=== PATIENT | male | born 1940 | race Caucasian/White ===

== ENCOUNTER 2020-07-12 13:38 | Outpatient (CLI) | payer MEDICARE, SELFPAY ==
--- NOTE | ~2020-07-12 | XR_ITS ---
EXAMINATION: XR abdomen/kub 1V DATE: 07/12/2020 14:11 INDICATION: Left lower quadrant abdominal pain. Constipation. TECHNIQUE: A supine view of the abdomen on 2 radiographs was obtained. COMPARISON: CT abdomen and pelvis 03/23/2009 FINDINGS: There are no dilated loops of bowel. There is a small volume of stool in the colon. Surgica l clips in the right upper quadrant are likely from cholecystectomy. There is a 4 mm stone in right k idney. There are least 3 stones in left kidney measuring up to 5 mm. There are phleboliths in the pel vis. IMPRESSION: 1. Normal bowel gas pattern. 2. Bilateral kidney stones. Reviewed, dictated and finalized at location B.
== END 2020-07-12 13:39 | disposition home or self-care (01) ==
LOC: ANHIMG 13:44
PROVIDERS: PCP Internal Medicine; Visit Provider Internal Medicine
DX: K59.00 Constipation, unspecified (principal); N20.0 Calculus of kidney
CPT/HCPCS: 74018

== ENCOUNTER 2020-08-29 06:43 | Emergency (ER) | payer MEDICARE, SELFPAY ==
--- NOTE | ~2020-08-29 | CT_ITS ---
EXAMINATION: CT BRAIN W/O DATE: 08/29/2020 08:06 INDICATION: Headache. TECHNIQUE: Computed tomography (CT) of the head and sinuses was performed without intravenous contras t. The dose-length product was 756.67 mGy-cm. The mA was adjusted according to patient size. Iterativ e reconstruction technique was employed. COMPARISON: 09/19/2012 FINDINGS: Mild generalized atrophy. There are scattered mild periventricular and subcortical white ma tter changes, most likely related to small vessel ischemic disease (microangiopathy). No ventriculomegaly or midline shift. Midline sagittal images demonstrate a normal corpus callosum, c raniovertebral junction and sella turcica. Basilar cisterns are patent. There is mild mucosal thickening of the maxillary sinuses. Minimal mucosal thickening left sphenoid s inus. Ostiomeatal units are patent. 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 IMPRESSION: 1. No acute intracranial abnormality. 2: Mild sinus disease. 3: Chronic age-related findings. Reviewed, dictated and finalized at location A.
[2020-08-29 06:51] VITALS: BP 135/75; PULSE 83; RESP 18; TEMP 36.7; O2SAT 98
[2020-08-29 07:58] LABS: Basophils Absolute Auto 0.1 K/mm3 (0.0-0.1); Basophils Percent Auto 0.5 % (0.2-1.2); Eosinophils Absolute Auto 0.3 K/mm3 (0-0.3); Eosinophils Percent Auto 1.5 % (0-4.4); Hematocrit 40.5 % (42.0-52.0); Hemoglobin 13.1 g/dL (14.0-18.0); Immature Granulocyte Absolute 0.21 K/mm3 (0.00-0.031); Immature Granulocyte Percent A 1.1 % (0-0.5); Lymphocytes Absolute Auto 2.69 K/mm3 (0.9-3.2); Lymphocytes Percent Auto 14.1 % (18.3-44.2); Mean Corpuscular HGB Conc 32.3 g/dl (32-36); Mean Corpuscular Hemoglobin 29.2 pg (26-34); Mean Corpuscular Volume 90.2 fl (80-100); Mean Platelet Volume 10.6 fl (7.4-10.4); Monocytes Absolute Auto 1.2 K/mm3 (0.1-0.6); Monocytes Percent Auto 6.3 % (2.6-8.5); Neutrophils Absolute Auto 14.6 K/mm3 (1.3-6.7); Neutrophils Percent Auto 76.5 % (45.5-73.1); Platelet Count Result 295 k/mm3 (150-375); Red Blood Count 4.49 M/mm3 (4.6-6.20); Red Cell Distribution Width 14.7 % (11.5-14.5); White Blood Count 19.1 K/mm3 (4.5-10.0)
[2020-08-29 08:28] LABS: Anion Gap 16 mmol/L (8-16); Blood Urea Nitrogen 26 mg/dL (9-20); CRP 14.9 mg/dL (<1.0); Calcium 9.5 mg/dL (8.4-10.2); Carbon Dioxide 19 mmol/L (22-30); Chloride 105 mmol/L (98-107); Estimated Glomerular Filt Rate 45; Glucose 203 mg/dL (75-110); Potassium 4.1 mmol/L (3.4-5.0); Sodium 140 mmol/L (137-145)
[2020-08-29 09:11] VITALS: BP 132/77; PULSE 75; RESP 18; O2SAT 98
--- NOTE | 2020-08-29 10:37 | ED.HA ---
HPI - Headache General Chief Complaint: Headache Stated Complaint: Headache Time Seen by Provider: 08/29/20 07:11 Source: patient Mode of arrival: ambulatory Limitations: no limitations History of Present Illness HPI Narrative: 80-year-old with a history of hypertension, diabetes, recurrent sinus infections here with a complains of having frontal headaches for last few days however last night he said the pain was intense. He is presently on cefuroxime for past 4 days given by his primary doctor. He denies any fever or chills. No history of chest pain or shortness of breath or cough. MD elicited complaint: headache Pertinent past history: hypertension Onset (ago): day(s) (2) Onset description: gradually Location: frontal Quality & Timing: aching Exacerbating factors: none Relieving factors: nothing Associated symptoms: none Treatments prior to arrival: none Related Data Home Medications Medication Instructions Recorded Confirmed testosterone cypionate 200 mg/mL 200 mg IM ONCE 03/03/20 intramuscular oil Allergies Allergy/AdvReac Type Severity Reaction Status Date / Time No Known Allergies Allergy Verified 03/29/20 14:32 NKFA Allergy Unknown Abdominal Uncoded 03/29/20 14:32 Pain Review of Systems Review of Systems: All systems reviewed & are unremarkable except as noted in HPI and below Constitutional: Constitutional: Reports as per HPI Eyes: Eyes: Reports as per HPI Cardiovascular: Cardiovascular: Reports no additional cardiovascular complaints Respiratory: Respiratory: Reports no additional respiratory complaints Integumentary/Breasts: Skin/Breast: Reports system reviewed and no additional complaints, except as docu Neurologic: Reports system reviewed and no additional complaints, except as documented Psychiatric: Psychiatric: Reports no additional psychiatric complaints PMFSH Past Medical History Medical History CAD (coronary artery disease) Cholecystostomy care Surgical History Surgical History H/O cataract extraction Family History Family History Father Family history of emphysema Mother Family history of heart disease in male family member before age 55 Social History Social History Smoking end date: 11/19/84 Alcohol intake: never Exam Narrative: Exam Narrative: GENERAL: Well-appearing, well-nourished, and in no acute distress. HEAD: Normocephalic, atraumatic. EYES: PERRLA and EOMI. ENT: Nares clear, no rhinorrhea or epistaxis. Mucous membranes moist. NECK: Supple. CHEST: Clear to auscultation. No respiratory distress. HEART: Regular rate and rhythm. No murmur heard. Normal peripheral pulses. ABDOMEN: Soft, nontender, nondistended, normal active bowel sounds. EXTREMITIES: Normal range of motion. No edema. SKIN: Warm, dry, no rash. NEURO: No focal deficits. Alert and oriented x3. PSYCH: Normal mood and affect. Course Course Emergency Course: Inform patient about his lab work, CT findings. As patient is been on cefuroxime for past 4 days and still having symptoms along with elevated white count advised him to stop the antibiotic and will start him on Augmentin 875 twice daily. Also recommended him to continue his home medication. Vital Signs Vital signs: Vital Signs Temperature 36.7 C 08/29/20 06:51 Pulse Rate 83 08/29/20 06:51 Respiratory Rate 18 08/29/20 06:51 Blood Pressure 135/75 08/29/20 06:51 Pulse Oximetry 98 08/29/20 06:51 Temperature 36.7 C 08/29/20 06:51 Pulse Rate 75 08/29/20 09:11 Respiratory Rate 18 08/29/20 09:11 Blood Pressure 132/77 08/29/20 09:11 Pulse Oximetry 98 08/29/20 09:11 MDM - Headache Differential Diagnosis Differential diagnosis: Likely migraine, headache and sinusitis Medical Re
[2020-08-29 10:52] VITALS: BP 136/79; PULSE 77; RESP 18; O2SAT 99
== END 2020-08-29 10:53 | disposition home or self-care (01) ==
PROVIDERS: Emergency Provider Family Medicine; PCP Internal Medicine
DX: J01.01 Acute recurrent maxillary sinusitis (principal); I10 Essential (primary) hypertension; E11.9 Type 2 diabetes mellitus without complications; I25.10 Atherosclerotic heart disease of native coronary artery without angina pectoris; Z98.49 Cataract extraction status, unspecified eye
CPT/HCPCS: 36415; 70450; 70486; 80048; 85025; 86140; 96365; 99284; J0696

== ENCOUNTER 2020-09-01 15:13 | Emergency (ER) | payer MEDICARE, SELFPAY ==
--- NOTE | ~2020-09-01 | CT_ITS ---
EXAMINATION: CTA brain carotid EXAM DATE: 09/01/2020 19:18 INDICATION: Headache Sunday. TECHNIQUE: Noncontrast head CT. Spiral CTA of the carotid arteries was performed with intravenous i njection 100 cc of Omnipaque 350. Axial, coronal, sagittal reformatted images reviewed. Additional r eformatted images created on dedicated 3-D workstation. NASCET comparable standard used to assess th e degree of arterial stenosis. Spiral CT angiogram cerebral arteries performed with the same intrave nous injection of contrast. Source images of the brain CTA transferred to dedicated workstation for 3 -D rotational image creation. Coronal, sagittal maximum intensity pixel images also reviewed. The d ose-length product (DLP) for this examination was 1935.61 mGy-cm. The exposure was tailored accordi ng to patient size, and iterative reconstruction (ASIR) was used as additional dose reduction techniq ue. Comparison is made to prior examination from 08/29/2020. FINDINGS: There is mild to moderate right carotid bulb plaque with 0% stenosis. There is mild left ca rotid bulb plaque with 0% stenosis, plaque is accommodated by the dilation of the carotid bulb. The l eft vertebral artery is dominant. There is left-sided posterior communicating artery dominant posteri or cerebral artery. There is mild bilateral carotid siphon arterial sclerosis without stenosis. Ther e is no carotid or vertebral basilar arterial dissection or fibromuscular dysplasia. There are no cer ebral artery aneurysms. There is symmetric cerebral artery arborization. The sagittal, transverse and sigmoid sinuses enhance normally, no venous sinus thrombosis. Internal cerebral veins also enhance n ormally. There is no acute intraparenchymal hemorrhage. No evidence of intraparenchymal brain mass lesion. N o evidence of acute infarction. There is mild periventricular and subcortical hypodensity, nonspecifi c but probably related to small vessel ischemic disease. There is mild prominence of the sulci and ventricles related to cerebral atrophy. There is intracranial carotid arteriosclerosis. There is no mass effect or midline shift. There is no obstructive hydrocephalus suspected. There are no extra -axial collections. There are no calvarial acute fractures. Bilateral cataract surgery. Large cervic al endplate osteophytes with advanced cervical spondylosis. Sternotomy wires. IMPRESSION: 1. No acute cervical or intracranial findings. 2. Mild atrophy and microangiopathy. 3. Carotid plaque without stenosis Reviewed, dictated and finalized at location A.
[2020-09-01 15:47] VITALS: BP 129/69; PULSE 94; RESP 18; TEMP 37.1; O2SAT 98
[2020-09-01 18:05] VITALS: BP 127/70; PULSE 95; RESP 15; O2SAT 98
--- NOTE | 2020-09-01 18:18 | ECG_ITS ---
Measurements Intervals [place] Rate: 78 P: 14 ND: 170 QRS: 31 QRSD: 86 T: 35 QT: 334 QTc: 380 Interpretive Statements SINUS RHYTHM NONSPECIFIC T-WAVE ABNORMALITY- ANT/INF LEADS BORDERLINE ECG Electronically Signed On 09-02-2020 6:58:02 CDT by Manas Michael D.O.
[2020-09-01 18:42] LABS: Basophils Absolute Auto 0.1 K/mm3 (0.0-0.1); Basophils Percent Auto 0.5 % (0.2-1.2); Eosinophils Absolute Auto 0.2 K/mm3 (0-0.3); Eosinophils Percent Auto 0.9 % (0-4.4); Hematocrit 37.1 % (42.0-52.0); Hemoglobin 12.2 g/dL (14.0-18.0); Immature Granulocyte Absolute 0.12 K/mm3 (0.00-0.031); Immature Granulocyte Percent A 0.7 % (0-0.5); Lymphocytes Absolute Auto 1.69 K/mm3 (0.9-3.2); Lymphocytes Percent Auto 10.4 % (18.3-44.2); Mean Corpuscular HGB Conc 32.9 g/dl (32-36); Mean Corpuscular Volume 88.1 fl (80-100); Mean Platelet Volume 9.7 fl (7.4-10.4); Neutrophils Absolute Auto 13.2 K/mm3 (1.3-6.7); Neutrophils Percent Auto 81.5 % (45.5-73.1); Platelet Count Result 324 k/mm3 (150-375); Red Blood Count 4.21 M/mm3 (4.6-6.20); Red Cell Distribution Width 14.4 % (11.5-14.5); White Blood Count 16.2 K/mm3 (4.5-10.0)
--- NOTE | 2020-09-01 18:43 | ED.GENADULT ---
HPI - General Adult General Chief complaint: Headache Stated complaint: HEADACHE Time Seen by Provider: 09/01/20 18:28 Source: patient, family and old records reviewed Mode of arrival: ambulatory Limitations: no limitations History of Present Illness HPI narrative: Patient is a 80-year-old male who returns to emergency department for evaluation of frontal headache was seen 08/29/2020 for the same findings had CAT scan was diagnosed with sinusitis and sent home patient notes he continues to have frontal headache with pain to the bilateral ears and scratchiness of the right side of the throat. Patient has been taking antibiotics with no improvement as well as tramadol which he takes for chronic pain. Nothing is made the pain worse. Pain is remained constant. Patient with history of sinusitis. Patient had been placed on antibiotics prior to coming to the emergency department Related Data Home Medications Medication Instructions Recorded Confirmed testosterone cypionate 200 mg/mL 200 mg IM ONCE 03/03/20 intramuscular oil Allergies Allergy/AdvReac Type Severity Reaction Status Date / Time No Known Allergies Allergy Verified 09/01/20 18:22 NKFA Allergy Unknown Abdominal Uncoded 09/01/20 18:22 Pain Review of Systems Review of Systems: All systems reviewed & are unremarkable except as noted in HPI and below PMFSH Past Medical History Medical History (Updated 09/01/20 @ 20:12 by Ranjit Winter PA-C) CAD (coronary artery disease) Cholecystostomy care Surgical History Surgical History H/O cataract extraction Family History Family History Father Family history of emphysema Mother Family history of heart disease in male family member before age 55 Social History Social History Smoking end date: 11/19/84 Alcohol intake: never Gender identity (if verbalized by the patient): Male Exam Narrative: Exam Narrative: GENERAL: Well-appearing, well-nourished, and in no acute distress. HEAD: Normocephalic, atraumatic. EYES: PERRLA and EOMI. ENT: Nares clear, no rhinorrhea or epistaxis. Mucous membranes moist. Oropharynx without tonsillar hypertrophy exudate or other lesions. Bilateral TMs pearly ferrer nonbulging NECK: Supple. No adenopathy or masses. No carotid bruits or JVD CHEST: Clear to auscultation. No respiratory distress. No wheezes rales or rhonchi HEART: Regular rate and rhythm. No murmur heard. Normal peripheral pulses. ABDOMEN: Soft, nontender, nondistended EXTREMITIES: Normal range of motion. No edema. SKIN: Warm, dry, no rash. NEURO: No focal deficits. Alert and oriented x3. Cranial nerves II through XII grossly intact. Normal speech. Normal gait. Cerebellar intact. No pronator drift. Normal hypk-bo-pxez and ygukwh-jy-vbol PSYCH: Normal mood and affect. Course Course Emergency Course: Patient in the room at this time he has been evaluated and is resting comfortably in the room in no distress does not appear to be in pain patient will be continued to be treated for sinusitis will be tested for Covid given the upper respiratory nature of his symptoms patient will follow with primary care and has also been advised to follow-up with his ENT physician and to continue his current medications and will have medications added Vital Signs Vital signs: Vital Signs Temperature 98.8 F 09/01/20 15:47 Pulse Rate 94 09/01/20 15:47 Respiratory Rate 18 09/01/20 15:47 Blood Pressure 129/69 09/01/20 15:47 Pulse Oximetry 98 09/01/20 15:47 Temperature 98.8 F 09/01/20 15:47 Pulse Rate 79 09/01/20 20:07 Respiratory Rate 16 09/01/20 20:07 Blood Pressure 146/78 H 09/01/20 20:07 Pulse Oximetry 97 09/01/20 20:07 Medical Decision Making [facility] Narrative Medical decision making narrative: Patient with heada
[2020-09-01] MEDS: SODIUM CHLORIDE 0.9% IV 500 ML 999 ML IV CONT (18:45)
[2020-09-01 18:49] LABS: Anion Gap 13 mmol/L (8-16); Blood Urea Nitrogen 32 mg/dL (9-20); Calcium 9.1 mg/dL (8.4-10.2); Carbon Dioxide 20 mmol/L (22-30); Chloride 105 mmol/L (98-107); Estimated CRCL calculation 48 ml/min; Estimated Glomerular Filt Rate 53; Glucose 176 mg/dL (75-110); INR 1.2; Potassium 4.4 mmol/L (3.4-5.0); Prothrombin Time 14.6 Seconds (11.1-14.7); Sodium 138 mmol/L (137-145)
[2020-09-01 18:50] LABS: Partial Thromboplastin Time 41.7 SECONDS (22.3-36.8)
[2020-09-01] MEDS: KETOROLAC 30 MG/ML VIAL (*BKC) 10 MG IV PUSH (18:59)
[2020-09-01 19:00] LABS: Troponin I < 0.012 ng/mL (0.000-0.034)
--- NOTE | 2020-09-01 19:20 | PC.NURSE ---
Report to AYLA Mai, to continue care. Pt remains out of department in CT at the moment.
[2020-09-01 20:03] LABS: Glucose Point of Care 153 (65-105)
[2020-09-01 20:07] VITALS: BP 146/78; PULSE 79; RESP 16; O2SAT 97
[2020-09-01] MEDS: SODIUM CHLORIDE 0.9% IV 1,000 ML 999 ML IV CONT (20:40)
[2020-09-01 22:50] VITALS: BP 133/84; PULSE 77; RESP 16; TEMP 36.7; O2SAT 97
[2020-09-02 13:52] LABS: SARS-CoV-2 RNA PCR Negative
== END 2020-09-01 21:45 | disposition home or self-care (01) ==
PROVIDERS: Emergency Medicine Emergency Medical Services; Emergency Provider Emergency Medicine; PCP Internal Medicine
DX: R51.9 Headache, unspecified (principal); Z20.828 Contact with and (suspected) exposure to other viral communicable diseases; I25.10 Atherosclerotic heart disease of native coronary artery without angina pectoris; Z98.49 Cataract extraction status, unspecified eye; G89.29 Other chronic pain; J32.9 Chronic sinusitis, unspecified
CPT/HCPCS: 36415; 70496; 70498; 80048; 84484; 85025; 85610; 85730; 87081; 87635; 87880; 93005; 96365; 96375; 99284; C9803; J0131; J1885; J7030; J7040; Q9967; U0003

== ENCOUNTER 2020-09-15 01:29 | Outpatient (CLI) | payer MEDICARE, SELFPAY ==
[2020-09-15 18:18] LABS: SARS-CoV-2 RNA PCR Negative
== END 2020-09-15 01:30 | disposition home or self-care (01) ==
LOC: ANHCOVIDDT 01:29
PROVIDERS: PCP Internal Medicine; Visit Provider Surgery
DX: Z01.812 Encounter for preprocedural laboratory examination (principal); Z20.828 Contact with and (suspected) exposure to other viral communicable diseases
CPT/HCPCS: 87635; C9803; U0003

== ENCOUNTER 2020-09-17 01:43 | Day surgery (SDC) | payer MEDICARE, SELFPAY ==
--- NOTE | 2020-09-15 17:33 | PM.SD ---
Same Day Admit/Disch: HPI History of Present Illness Chief complaint: Headache Narrative: Sergei Sanchez is a 80 year old male With a chronic severe headache. The headache is more frontal with pressure on his eyes ears in down his throat. He has seen an ear nose and throat doctor who does not feel that this is sinusitis. He has been to the emergency room twice. He was seen by last week and noted to have an elevated CRP. He was started on steroids and has been referred for bilateral temporal artery biopsies. Headache has been better since started on steroids. [facility], [facility] Past Medical History Medical History CAD (coronary artery disease) Cholecystostomy care Chronic GERD Essential (primary) hypertension Other and unspecified hyperlipidemia Reactive airway disease with acute exacerbation Restless legs syndrome Type 2 diabetes mellitus without complications Surgical History Surgical History H/O cataract extraction History of arthroplasty bilateral knees Hx of CABG 1999 Family History Family History Father Family history of emphysema Mother Family history of heart disease in male family member before age 55 Social History Social History Smoking status: Former smoker Tobacco type: cigarettes Smoking end date: 11/19/84 Additional smoking assessment comments: STATES 2PK/DAY - QUIT 1999 Alcohol intake: never Substance use: never Living arrangements: with family Gender identity (if verbalized by the patient): Male Spiritual care concerns: No Same Day Admit/Disch: Med Pre-admit Medications Home Medications Medication Instructions Recorded Confirmed Type tramadol 50 mg tablet 50 mg PO Q6H PRN #100 tablet 11/17/19 09/14/20 Rx testosterone cypionate 200 mg/mL 200 mg IM MONTHLY 03/03/20 09/14/20 History intramuscular oil diclofenac 75 mg-misoprostol 200 1 tablet PO BID #180 tablet 05/24/20 09/14/20 Rx mcg tablet,immediate,delayed release alprazolam 0.25 mg tablet 0.25 mg PO .HS PRN #30 tablet 07/08/20 09/14/20 Rx glipizide 5 mg tablet 5 mg PO DAILY #30 tablet 07/08/20 09/14/20 Rx Flonase Sensimist 2 spray INTRANASAL DAILY #5.9 ml 09/01/20 09/14/20 Rx loratadine [Claritin] 10 mg PO DAILY PRN #10 tablet 09/01/20 09/14/20 Rx hydrocodone 5 mg-acetaminophen 325 1 tablet PO Q8H PRN #30 tablet 09/07/20 09/14/20 Rx mg tablet hydralazine 50 mg tablet 50 mg PO TID #270 tablet 09/09/20 09/17/20 Rx Anoro Ellipta 1 inhalation INHALATION Q24H PRN 09/14/20 09/14/20 History amlodipine 5 mg DAILY 09/14/20 09/17/20 History aspirin 81 mg PO DAILY 09/14/20 09/17/20 History metformin 500 mg TID 09/14/20 09/14/20 History metoprolol tartrate 25 mg PO DAILY 09/14/20 09/17/20 History misoprostol 200 mcg SUBLINGUAL Q4H PRN 09/14/20 09/14/20 History multivitamin 1 tablet PO DAILY 09/14/20 09/14/20 History omega 5-mjx-sax-fish oil [Fish Oil] 1 cap DAILY 09/14/20 09/14/20 History omeprazole 40 mg PO DAILY PRN 09/14/20 09/14/20 History prednisone 10 mg PO QID 09/14/20 09/17/20 History ropinirole 0.25 mg PO HS 09/14/20 09/14/20 History rosuvastatin 40 mg PO HS 09/14/20 09/14/20 History tamsulosin 0.4 mg PO HS 09/14/20 09/14/20 History hydrocodone-acetaminophen 1 - 2 tablet PO Q6H PRN #10 tablet 09/17/20 Rx Exam Const: General: comfortable, no acute distress, alert and awake HENMT: Head: normocephalic, atraumatic and other ( no temporal tenderness right or left side) Mouth: Yes Normal oral and palatal mucosa present Eyes: Conjunctivae: conjunctivae normal Pupils: Equal, round and reactive pupils present EOM: EOMs intact bilaterally Neck: Neck: normal visual inspection, no lymphadenopathy and nontender Resp: Effort & Inspection: normal respiratory effort Auscultation: clear to auscultation bila
[2020-09-17 10:00] VITALS: BP 122/73; PULSE 76; RESP 18; TEMP 36.2; O2SAT 97
[2020-09-17] MEDS: LACTATED RINGERS 1,000 ML 30 ML IV CONT (10:30)
[2020-09-17 10:46] LABS: Glucose Point of Care 346 (65-105)
--- NOTE | 2020-09-17 10:55 | WPDANESEPPF ---
Anes - Initial Pre Proc Eval Procedure: Operation Date: 09/17/20 12:30 Proposed Procedures p Bilateral Temporal Artery Biopsy - Gabriel Brennan MD Date/Time: 09/17/20 10:55 Surgeon: Gabriel Brennan MD Pre Op Diagnosis: Headache Patient Data Age: 80 Gender: M Height: 1.8 m Weight: 94.4 kg Last Vital Signs Temp 36.2 C L 09/17/20 10:00 Pulse 76 09/17/20 10:00 Resp 18 09/17/20 10:00 BP 122/73 09/17/20 10:00 Pulse Ox 97 09/17/20 10:00 Allergies Allergy/AdvReac Type Severity Reaction Status Date / Time No Known Allergies Allergy Verified 09/17/20 10:47 NKFA Allergy Unknown Abdominal Uncoded 09/17/20 10:47 Pain Home Medications Medication Instructions Recorded Confirmed Type tramadol 50 mg tablet 50 mg PO Q6H PRN #100 tablet 11/17/19 09/14/20 Rx testosterone cypionate 200 mg/mL 200 mg IM MONTHLY 03/03/20 09/14/20 History intramuscular oil diclofenac 75 mg-misoprostol 200 1 tablet PO BID #180 tablet 05/24/20 09/14/20 Rx mcg tablet,immediate,delayed release alprazolam 0.25 mg tablet 0.25 mg PO .HS PRN #30 tablet 07/08/20 09/14/20 Rx glipizide 5 mg tablet 5 mg PO DAILY #30 tablet 07/08/20 09/14/20 Rx fluticasone furoate [Flonase 2 spray INTRANASAL DAILY #5.9 ml 09/01/20 09/14/20 Rx Sensimist] loratadine [Claritin] 10 mg PO DAILY PRN #10 tablet 09/01/20 09/14/20 Rx hydrocodone 5 mg-acetaminophen 325 1 tablet PO Q8H PRN #30 tablet 09/07/20 09/14/20 Rx mg tablet hydralazine 50 mg tablet 50 mg PO TID #270 tablet 09/09/20 09/17/20 Rx amlodipine 5 mg DAILY 09/14/20 09/17/20 History aspirin 81 mg PO DAILY 09/14/20 09/17/20 History metformin 500 mg TID 09/14/20 09/14/20 History metoprolol tartrate 25 mg PO DAILY 09/14/20 09/17/20 History misoprostol 200 mcg SUBLINGUAL Q4H PRN 09/14/20 09/14/20 History multivitamin [Multi-Vitamin] 1 tablet PO DAILY 09/14/20 09/14/20 History omega 3-ygo-cvt-fish oil [Fish Oil] 1 cap DAILY 09/14/20 09/14/20 History omeprazole 40 mg PO DAILY PRN 09/14/20 09/14/20 History prednisone 10 mg PO QID 09/14/20 09/17/20 History ropinirole 0.25 mg PO HS 09/14/20 09/14/20 History rosuvastatin 40 mg PO HS 09/14/20 09/14/20 History tamsulosin 0.4 mg PO HS 09/14/20 09/14/20 History umeclidinium-vilanterol [Anoro 1 inhalation INHALATION Q24H PRN 09/14/20 09/14/20 History Ellipta] Laboratory Tests 09/17/20 10:38 POC Capillary Glucose 346 mg/dl H mg/dl (65-105) Patient hx anesthesia problems: none Family hx anesthesia problems: none PMFSH Past Medical History Medical History (Updated 09/16/20 @ 08:59 by Luis Krueger DO) CAD (coronary artery disease) Cholecystostomy care Chronic GERD Essential (primary) hypertension Other and unspecified hyperlipidemia Reactive airway disease with acute exacerbation Restless legs syndrome Type 2 diabetes mellitus without complications Surgical History Surgical History (Updated 09/16/20 @ 08:59 by Luis Krueger DO) H/O cataract extraction History of arthroplasty bilateral knees Hx of CABG 1999 Family History Family History Father Family history of emphysema Mother Family history of heart disease in male family member before age 55 Social History Social History Smoking status: Former smoker Tobacco type: cigarettes Smoking end date: 11/19/84 Additional smoking assessment comments: STATES 2PK/DAY - QUIT 1999 Alcohol intake: never Substance use: never Living arrangements: with family Gender identity (if verbalized by the patient): Male Spiritual care concerns: No Anes - Eval Final PreProcedure Day of Procedure 09/17/20 10:55 Patient weight: overweight Heart: regular rate and rhythm Lungs: clear to auscultation and normal air movement Airway: Mallampati scale class IV Neurological: alert and oriented Last oral intake: >/= 8 hours ASA c
[2020-09-17] MEDS: INSULIN HUMAN REGULAR (*BKC) 100 UNITS/ML IV PUSH (11:21)
--- NOTE | 2020-09-17 11:35 | WPDHPUPDATE1 ---
History and Physical Update Update Date/Time: 09/17/20 11:35 History and Physical has been reviewed, including an updated exam of the patient. There are NO changes in the patient's condition. Risks, benefits, and alternatives have been discussed and questions answered. Patient agrees to proceed with procedure.
[2020-09-17] MEDS: ceFAZolin 2 GM/D5W 50 ML 2 GM/50 ML BAG IVPB (11:38)
[2020-09-17] MEDS: BUPIVACAINE/EPINEPHRINE 0.5% 10 ML VIAL 20 ML INFILTRATE (12:13)
[2020-09-17 13:35] VITALS: BP 137/75; PULSE 74; RESP 12; TEMP 36.1; O2SAT 96
[2020-09-17 13:55] LABS: Glucose Point of Care 303 (65-105)
[2020-09-17 14:05] VITALS: BP 148/78; PULSE 66; RESP 12; O2SAT 96
--- NOTE | 2020-09-17 14:21 | SUR.PHASEII ---
DR DAVIS NOTIFIED OF GLUCOSE OF 303 POST OP. PT WAS [address] DECIDED NOT TO TREAT AT THIS TIME BECAUSE OF STEROIDS AND THE FACT THAT HIS GLUCOSE IS GOING DOWN.
[2020-09-17 14:35] VITALS: BP 136/72; PULSE 62; RESP 12; O2SAT 97
--- NOTE | 2020-09-17 17:32 | P.OP_ITS ---
Procedure Note - Detailed Date of procedure: 09/17/20 Pre-op diagnosis: Headache frontal, nonlateralizing chronic headache Post-op diagnosis: same Procedure performed: bilateral temporal artery biopsy Description of procedure: After discussion, the patient was taken to the operating room and IV sedation was administered. Using a Doppler, a preauricular incision was marked on both sides of the temporal area of the scalp. A small amount of hair was shaved in the area of the anticipated incisions as well. We started on the patient's right side. Prep and drape was carried out. Local anesthetic was infiltrated over the anticipated incision. Incision was made and dissection was carried down through the subcutaneous. Cautery was used for hemostasis. Eventually, we found the right temporal artery. There were several veins in the area. Some of these were doubly ligated with Vicryl ties and divided. Others were divided with cautery. Eventually we out about a 2-3 cm piece of right temporal artery. It was clamped on either end and divided. It was sent to pathology in formalin. The 2 ends of the artery were ligated with 4 0 Vicryl ties. We then made the wound hemostatic. It was closed with a subcutaneous interrupted suture of 4 0 Vicryl. The skin was closed with running 4 0 Monocryl skin suture. The wound was dressed with Exofin surgical adhesive. We then turned the patient's head so that the left temporal area was exposed. In similar fashion, prep and drape was carried out. Local anesthetic was infiltrated in the area of the previously marked preauricular scalp incision. Incision was made and dissection was carried down through the skin and superficial subcutaneous. On the left side, I had a harder time locating the temporal artery. I brought a sterile Doppler pr obe into the wound and found the vessel by Doppler. I dissected a bit of the skin more anterior to the incision so that the artery was fully exposed. I then dissected out about a 2 and 1/2 cm segment of left temporal artery. It was doubly clamped and divided as well. It was sent to pathology in formalin. The 2 ends were ligated with 4 0 Vicryl ties. The wound was then made hemostatic with the cautery. Wound was closed with subcutaneous interrupted sutures of 4 0 Vicryl. The skin was closed with running 4 0 Monocryl skin suture. This wound was also dressed with Exofin surgical adhesive. The patient was awakened and taken to outpatient recovery in good condition. Sponge and needle counts were correct x2. Anesthesia: MAC and local ( 0.5% Marcaine with epinephrine) Surgeon: Gabriel Brennan MD Stacker And Sorter Operator: Minerva IZQUIERDO Estimated blood loss (mL): 10 Drains: No Packing: No Pathology: yes ( right temporal artery, left temporal artery) Complications: None Condition: stable Disposition: same day Findings: right and left temporal artery vessels
== END 2020-09-17 14:50 | disposition home or self-care (01) ==
PROVIDERS: PCP Internal Medicine; Visit Provider Surgery
PROC: (CPT 37609; principal; 2020-09-17 12:30)
DX: R51.9 Headache, unspecified (principal); I10 Essential (primary) hypertension; E78.5 Hyperlipidemia, unspecified; J45.909 Unspecified asthma, uncomplicated; I25.10 Atherosclerotic heart disease of native coronary artery without angina pectoris; E11.9 Type 2 diabetes mellitus without complications; G25.81 Restless legs syndrome; Z95.1 Presence of aortocoronary bypass graft; Z87.891 Personal history of nicotine dependence; Z79.84 Long term (current) use of oral hypoglycemic drugs; Z79.82 Long term (current) use of aspirin
CPT/HCPCS: 37609; 88305; A9270; J0690; J1815; J2704; J3010; J7120

== ENCOUNTER 2020-10-18 06:25 | Emergency (ER) | payer MEDICARE, SELFPAY ==
[2020-10-18] VITALS (7 sets, daily range): BP systolic 99–119; BP diastolic 60–80; PULSE 110–127; RESP 17–27; TEMP 36.3; O2SAT 96–100
--- NOTE | ~2020-10-18 | CT_ITS ---
EXAMINATION: CT abd pelvis lumbar wo con DATE: 10/18/2020 08:10 INDICATION: Low back pain. Flank pain. TECHNIQUE: Computed tomography (CT) of the abdomen and pelvis and lumbar spine was performed without intravenous contrast. Automated exposure control and iterative reconstruction technique were employed . The dose-length product was 1229.83 mGy-cm. COMPARISON: CT abdomen and pelvis 03/23/2009, chest CT 12/26/2018 FINDINGS: CT ABDOMEN AND PELVIS: The visualized portions of the lung bases demonstrate peripheral groundglass a nd reticular opacities. No pleural effusion. The heart size is normal. There are coronary artery calc ifications. No pericardial effusion. The liver and spleen are normal. There are changes of cholecyste ctomy. The pancreas and adrenal glands are normal. There are cysts in the kidneys measuring up to 7.0 cm on the right. There are 2 stones in right kidney measuring up to 5 mm. There are 5 stones in left kidney measuring up to 6 mm. There is gas in calyces bilaterally. The prostate is moderately enlarge d. There is a small volume of gas in the bladder lumen and bladder wall. There is diverticulosis of t he colon without evidence of diverticulitis. The appendix is normal. There are no dilated loops of andrés wel. There are no pathologically enlarged lymph nodes. There are bilateral inguinal hernias containin g fat. There is no free intraperitoneal fluid. There is gas in the iliopsoas muscles bilaterally. The re is gas in the central spinal canal from L2 to L3 that is likely epidural. There is moderate osteoa rthritis of the hips. There is a small volume of gas posterior to the right sacroiliac joint. CT LUMBAR SPINE: There is 3 mm retrolisthesis of L3 on L4. There is interbody fusion at L4-L5. Verteb ral body heights are normal. There is severely decreased disc height from L2-L3 through L5-S1 with en dplate remodeling. There is vacuum disc phenomenon at T12-L1, L1-L2, L2-L3, L3-L4, and L5-S1. There a re bridging endplate osteophytes at multiple levels in the thoracic spine, consistent with diffuse id iopathic skeletal hyperostosis (DISH). The following disc levels are specifically discussed: L1-L2: The disc is bulging. There is severe bilateral facet joint osteoarthritis. There is mild bilat eral neural foraminal stenosis. There is mild central canal stenosis. L2-L3: The disc is bulging. There is severe bilateral facet joint osteoarthritis. There is moderate b ilateral neural foraminal stenosis. There is mild central canal stenosis. L3-L4: The disc is bulging. There is severe bilateral facet joint osteoarthritis. There is moderate b ilateral neural foraminal stenosis. There is moderate central canal stenosis. L4-L5: There is ankylosis of the facet joints with moderate hypertrophy. There is moderate bilateral neural foraminal stenosis. There is mild central canal stenosis. L5-S1: The disc is bulging. There is severe bilateral facet joint osteoarthritis. There is moderate b ilateral neural foraminal stenosis. There is mild central canal stenosis. IMPRESSION: 1. Gas involving the bilateral iliopsoas muscles, bladder wall and lumen, bilateral renal calyces, tash mbar epidural space, and multiple lumbar discs. This finding may have a benign origin (such as venous spread of gas from the discs secondary to spondylosis) or may be a sign of infection. 2. Severe lumbar spondylosis. Reviewed, dictated and finalized at location A. [employer] IMPRESSION: 1. Gas involving the bilateral iliopsoas muscles, bladder wall and lumen, bilat eral renal calyces, lumbar epidural space, and multiple lumbar discs. This find ing may have a benign origin (such as venous spread of gas from the discs secon dannielle to spondylosis) or may be a sign of infection. 2. Severe lumbar spondylosis.
--- NOTE | 2020-10-18 07:15 | PC.NURSE ---
Assumed care of pt at this time, pt is alert and upright on stretcher - repositioned. Discussed POC w/ at bedside and pt. EDP at bedside.
[2020-10-18 07:24] LABS: Hematocrit 35.1 % (42.0-52.0); Hemoglobin 11.7 g/dL (14.0-18.0); Immature Platelet Fraction Pct 8.3 % (0.9-11.2); Mean Corpuscular HGB Conc 33.3 g/dl (32-36); Mean Corpuscular Hemoglobin 28.5 pg (26-34); Mean Corpuscular Volume 85.6 fl (80-100); Mean Platelet Volume 11.8 fl (7.4-10.4); Platelet Count Result 72 k/mm3 (150-375); Red Cell Distribution Width 17.1 % (11.5-14.5); White Blood Count 6.7 K/mm3 (4.5-10.0)
--- NOTE | 2020-10-18 07:24 | ED.BACK ---
HPI - Back Pain/Injury General Chief Complaint: Back Pain/Injury Stated Complaint: WEAKNESS/SOB Time Seen by Provider: 10/18/20 07:04 History of Present Illness HPI Narrative: Pain in the low back bilaterally for the past 4 days. Getting worse. Associated with bilateral leg weakness and numbness on the right. He is currently being treated for temporal arteritis. Since starting the steroids is blood sugar has been elevated and he has had no appetite. He has also noted urinary frequency and hesitancy. Related Data Home Medications Medication Instructions Recorded Confirmed testosterone cypionate 200 mg/mL 200 mg IM MONTHLY 03/03/20 10/04/20 intramuscular oil Anoro Ellipta 1 inhalation INHALATION Q24H PRN 09/14/20 10/04/20 aspirin 81 mg PO DAILY 09/14/20 10/04/20 metoprolol tartrate 25 mg PO DAILY 09/14/20 10/04/20 misoprostol 200 mcg SUBLINGUAL Q4H PRN 09/14/20 10/04/20 multivitamin 1 tablet PO DAILY 09/14/20 10/04/20 omega [id number]-fish oil [Fish Oil] 1 cap DAILY 09/14/20 10/04/20 ropinirole 0.25 mg PO HS 09/14/20 10/04/20 rosuvastatin 40 mg PO HS 09/14/20 10/04/20 tamsulosin 0.4 mg PO HS 09/14/20 10/04/20 Allergies Allergy/AdvReac Type Severity Reaction Status Date / Time No Known Allergies Allergy Verified 10/18/20 06:33 Review of Systems Review of Systems: All systems reviewed & are unremarkable except as noted in HPI and below Constitutional: Constitutional: Denies chills and Denies fever(s) Cardiovascular: Cardiovascular: Denies chest pain Respiratory: Respiratory: Denies cough and Reports dyspnea Gastrointestinal: Gastrointestinal: Reports nausea Genitourinary: Genitourinary: Reports urinary frequency Musculoskeletal: Musculoskeletal: Reports back pain Integumentary/Breasts: Skin/Breast: Denies rash Neurologic: Reports dizziness, Reports numbness and Reports weakness Psychiatric: Psychiatric: Reports anxiety [facility] Past Medical History Medical History CAD (coronary artery disease) Cholecystostomy care Chronic GERD Essential (primary) hypertension Fatigue Other and unspecified hyperlipidemia Reactive airway disease with acute exacerbation Restless legs syndrome Testicular hypofunction Type 2 diabetes mellitus without complications Surgical History Surgical History H/O cataract extraction History of arthroplasty bilateral knees Hx of CABG 1999 Family History Family History Father Family history of emphysema Mother Family history of heart disease in male family member before age 55 Social History Social History Smoking status: Former smoker Tobacco type: cigarettes Smoking end date: 11/19/84 Additional smoking assessment comments: STATES 2PK/DAY - QUIT 1999 Alcohol intake: never Substance use: never Gender identity (if verbalized by the patient): Male Spiritual care concerns: No Exam Const: General: alert and ill appearing Orientation/consciousness: patient oriented x3 Other: Mild distress. HENMT: Mouth: Yes dry mucous membranes Resp: Effort & Inspection: tachypneic Auscultation: crackles bilateral at the base Cardio: Rate: tachycardic Rhythm: regular rhythm GI: Inspection: non-distended GI Palp: Yes Soft to palpation and No Tenderness to palpation present (GI) Skin: General skin exam: normal color Neuro: General: patient oriented x3, moves all extremities and no focal motor deficits Extrem: General: normal to inspection Course Vital Signs Vital signs: Vital Signs Temperature 36.3 C L 10/18/20 06:24 Pulse Rate 127 H 10/18/20 06:24 Respiratory Rate 20 10/18/20 06:24 Blood Pressure 119/68 10/18/20 06:24 Pulse Oximetry 98 10/18/20 06:24 Temperature 36.3 C L 10/18/20 06:24 Pulse Rate 117 H 1
[2020-10-18 07:35] LABS: Alanine Aminotransferase 199 U/L (4-50); Albumin Level 2.8 g/dL (3.5-5.1); Alkaline Phosphatase 398 U/L (38-126); Anion Gap 11 mmol/L (8-16); Aspartate Amino Transferase 64 U/L (17-59); Bilirubin,Total 0.9 mg/dL (0.2-1.3); Blood Urea Nitrogen 80 mg/dL (9-20); Calcium 8.5 mg/dL (8.4-10.2); Carbon Dioxide 15 mmol/L (22-30); Chloride 106 mmol/L (98-107); Estimated CRCL calculation 18 ml/min; Estimated Glomerular Filt Rate 16; Glucose 334 mg/dL (75-110); Lipase 80 U/L (23-300); Potassium 5.3 mmol/L (3.4-5.0); Sodium 132 mmol/L (137-145)
[2020-10-18 07:41] LABS: Band Neutrophils Percent 7 % (0-6); Lymphocytes Absolute Manual 0.33 K/mm3 (1.1-4.5); Monocytes Absolute Manual 0.06 K/mm3 (0.1-0.90); Monocytes Percent Manual 1 % (3-9); Neutrophils Absolute Manual 6.29 K/mm3 (1.3-6.7); Neutrophils Percent Manual 87 % (46-73); Platelet Estimate Decreased (Adequate); Total Cells Counted 100
[2020-10-18] MEDS: SODIUM CHLORIDE 0.9% IV 1,000 ML 999 ML IV CONT ×3 (07:41→10:42)
[2020-10-18] MEDS: MORPHINE SULFATE (*CRX) 4 MG/ML INJ IV PUSH (07:42)
[2020-10-18 08:02] LABS: Add Urine Microscopic? YES; Appearance Urine Cloudy (Clear); Bacteria Urine 4+ /hpf; Bilirubin Urine Negative (Negative); Blood Urine 3+ (Negative); Color Urine Amber (Yellow); Glucose Urine UA Negative (Negative); Ketones Urine Negative (Negative); Leukocyte Esterase Ur 3+ LEU/UL (Negative); Mucus Urine Rare /lpf; Nitrate Urine Negative (Negative); Protein Urine 2+ mg/dL (Negative); Specific Grav Ur 1.018 (1.001-1.035); Urobilinogen Urine Negative mg/dL (<2.0); WBC Clumps Urine Present /HPF; WBC Urine 51-75 /hpf
[2020-10-18 10:16] LABS: Lactic Acid Reflex 2.6 mmol/L (0.7-2.1)
--- NOTE | 2020-10-18 10:21 | PC.NURSE ---
[facility] declined with no rigs available. Contacted [facility]. ETA 1100
[2020-10-18] MEDS: HYDROmorphone HCL INJ (*CRX) 1 MG/ML SYR 0.5 MG IV PUSH (10:42)
--- NOTE | 2020-10-18 11:11 | PC.NURSE ---
[facility] arrived at 1100
[2020-10-18 13:03] LABS: Reflex Lactic Acid Yes or No Add Lactic
--- NOTE | 2020-10-18 13:10 | ECG_ITS ---
Measurements Intervals [place] Rate: 125 P: 53 [place]: 154 QRS: 50 QRSD: 85 T: 59 QT: 273 QTc: 395 Interpretive Statements SINUS TACHYCARDIA NONSPECIFIC ST & T-WAVE ABNORMALITY- INFERIOR LEADS BASELINE ARTIFACT- I, II, III, AVL, AVF, V1 ABNORMAL ECG Electronically Signed On 10-18-2020 13:27:45 [employer] by Manas Michael D.O.
== END 2020-10-18 12:02 | disposition short-term general hospital (02) ==
PROVIDERS: Emergency Provider Emergency Medicine; PCP Internal Medicine
DX: A41.9 Sepsis, unspecified organism (principal); N17.9 Acute kidney failure, unspecified; M54.5 Low back pain; I25.10 Atherosclerotic heart disease of native coronary artery without angina pectoris; K21.9 Gastro-esophageal reflux disease without esophagitis; I10 Essential (primary) hypertension; E78.5 Hyperlipidemia, unspecified; E11.9 Type 2 diabetes mellitus without complications; G25.81 Restless legs syndrome; J45.909 Unspecified asthma, uncomplicated; Z98.49 Cataract extraction status, unspecified eye; Z96.653 Presence of artificial knee joint, bilateral; Z95.1 Presence of aortocoronary bypass graft; Z87.891 Personal history of nicotine dependence; R00.0 Tachycardia, unspecified; R94.31 Abnormal electrocardiogram [ECG] [EKG]; M47.816 Spondylosis without myelopathy or radiculopathy, lumbar region
CPT/HCPCS: 36415; 51701; 72131; 74176; 80053; 81001; 83605; 83690; 85025; 85055; 87077; 87086; 87088; 87186; 93005; 96361; 96365; 96375; 99285; J0696; J1170; J2270; J7030